=== PATIENT | male | born 1985 | race Caucasian/White ===

== ENCOUNTER 2017-07-28 21:07 | Emergency (ER) | payer SELFPAY ==
[2017-07-28 21:08] VITALS: BP 122/66; PULSE 79; RESP 16; TEMP 36.6; O2SAT 98; BMI 31.4
--- NOTE | 2017-07-28 21:40 | ED.DCSUM_ITS ---
- ER Visit Summary Date of Service: 07/28/17 Chief Complaint: Back pain History of Present Illness: The patient is a 31 M resents to the emergency department with left-sided lumbar pain. The patient states he was getting with his work truck yesterday. He states when he stepped down, he had some tightness in his low back. He states over the past 24 hours, the pain is worsened. Worse with movement. He has not taken anything for it. It does not radiate down his legs. He denies any problems of bowel or bladder. He denies any direct trauma. He has had similar pain before in the past. Physical Examination: Afebrile, vitals unremarkable. Well-appearing female no acute distress. Head is normocephalic, atraumatic. Pupil's equal round reactive, extraocular muscles intact. Neck supple. Heart regular rate and rhythm. Lungs clear, chest nontender. Abdomen soft, nontender, nondistended. No pulsatile mass. Patient has paraspinal tenderness in the lumbar area, but no bony tenderness. Straight leg raise is negative bilaterally. 2+ symmetric lower extremity pulses. 2+ reflexes. No clonus. No weakness of dorsiflexion, plantar flexion, or extensor hallucis longus bilaterally. Test Results: [] Emergency Department Course and Treatment: The patient has no midline tenderness. He has no red flag symptoms. His reflexes, pulses, and gait is normal. Patient was given analgesics and antispasmodics. He will be kept on his medications as an outpatient. He will be discharged home. Treatment Plan: [] Disposition: Discharge Impression: 1. acute lumbar strain This note was generated with [employer] dictation software. It may contain incorrect words, spelling, and punctuation that were not noted in review of the chart prior to signing ED Disposition - Plan for ED Patient: Chief Complaint: Back Instructions: ED Sprain Strain Lumbar Prescriptions: Ibuprofen [Motrin] 800 mg PO TID PRN PRN #20 tab PRN Reason: Pain Cyclobenzaprine [Flexeril] 10 mg PO TID PRN #20 tab PRN Reason: Muscle Spasm Referrals: Care Physician,No Primary [Primary Care Provider] -
[2017-07-28 21:42] VITALS: BP 126/75; PULSE 83; RESP 18; O2SAT 98
[2017-07-28] MEDS: HYDROcodone Bitartrate/Apap 5/325 Tablet PO (21:44)
[2017-07-28] MEDS: Orphenadrine 60 MG/2 ML Ampul IM (21:45)
== END 2017-07-28 22:00 | disposition home or self-care (01) ==
LOC: ED 21:25
PROVIDERS: Emergency Provider Emergency Medicine
DX: S39.012A Strain of muscle, fascia and tendon of lower back, initial encounter (principal); X58.XXXA Exposure to other specified factors, initial encounter; Y93.89 Activity, other specified; Y92.9 Unspecified place or not applicable
CPT/HCPCS: 96372; 99283

== ENCOUNTER 2019-06-13 22:04 | Emergency (ER) | payer SELFPAY ==
[2019-06-13 22:04] VITALS: BP 138/43; PULSE 91; RESP 15; TEMP 36.6; O2SAT 96; BMI 34.8
--- NOTE | 2019-06-13 22:29 | ED.VIS.DENTA ---
History of Present Illness Chief Complaint: Dental Informant: Patient Onset: Today Context: Sudden Onset Timing: Continuous Narrative: Patient is a 33-year-old male with no significant past medical history presenting with sudden onset of left upper jaw pain. Patient states that he was eating cereal when he bit down felt a piece go into his tooth. He instantly had severe dental pain. He states now his pain in his entire left side. He states he has had problems with his teeth in the past but is never had time to find a dentist. States he felt well earlier. He is a tobacco user. He denies any difficulty swallowing. Denies any fever or chills. Denies any other complaints at this time. He did take ibuprofen about 2 hours prior to arrival. No relief of his symptoms. Past Medical History - Allergies and Home Meds Allergies/Adverse Reactions: Allergies oxaprozin Adverse Reaction (Verified 06/13/19 22:07) Swelling Primary Care Physician: Care Physician,No Primary [Primary Care Provider] - Past Medical History: None Surgical History: noncontributory Lives: With Family Smoking Status: Current every day smoker Review of Systems General: Denies: Chills, Fever, Sweats Eyes: Denies: Visual changes - bilaterally, Diplopia ENT: Reports: - - Left-sided dental pain. Denies: Rhinorrhea, Sore throat Cardiovascular: Denies: Chest pain, Palpitations Respiratory: Denies: Dyspnea, Cough, Dyspnea on exertion Gastrointestinal: Denies: Abdominal pain, Nausea, Vomiting Musculoskeletal: Denies: Back pain, Extremity Pain Skin: Denies: Rash, Wounds Neurological: Denies: Headache, Weakness, Numbness Physical Exam Vital Signs/Narrative: Vital Signs Temp Pulse Resp BP Pulse Ox 06/13/19 22:04 97.9 F 91 15 138/43 H 96 Inital Vital Signs reviewed: Yes General: Well nourished, Well developed Head: Normocephalic, Atraumatic ENT: Moist mucous membranes, No rhinorrhea, TM's clear Mouth/Throat: Normal inspection lips/gums, Normal oral mucosa, No sublingual edema, Tenderness on tooth percussion - left upper first molar , Widespread dental decay. Negative for: Dental abscess, Trismus Neck: Supple, No lymphadenopathy, Nontender, No JVD Cardiovascular: Regular rate, Regular rhythm Respiratory: No distress Extremities: Nontender, No edema Skin: Normal color, No rash Neurological: Alert, Oriented x3, Cranial nerves II-XII grossly intact, Normal Strength, Normal Sensation Psychological: Normal affect Diagnostic/Tx/Re-eval - Medical Decision Making Regional and Local Dental Anesthesia: - - Posterior superior inferior alveolar block?left Evaluated for sudden onset of dental pain. Seems to be focused around the left upper molar. Dental block is performed. Patient is also given Tylenol as he took ibuprofen prior to arrival. In addition he is started on penicillin given first dose in the emergency room. [facility] heart shows the patient does not have any opioid prescriptions filled within the last 2 years. Patient be given a short course of [place] for breakthrough pain. He is given a dental referral sheet. He is also given a 10-day course of penicillin as well as a prescription of Motrin 600 mg. Patient does not have any signs of trismus, abscess or Ezequiel's angina. Patient is counseled on signs and symptoms requiring return to the emergency room. Patient verbalizes agreement and understand this plan. Patient discharged home in stable and improved condition. ED Disposition - Plan for ED Patient: Disposition: Home or Assisted Living Diagnosis: Dentalgia Instructions: ED Tooth Pain Prescriptions: Ibuprofen [Motrin] 600 mg PO Q6H PRN PRN #20 tab PRN Reason: Pain Score 1-10/10 Prescription Printed Hydrocodone/Acetaminophen [[place] 5-325 Tablet] 1 ea PO Q6H PRN PRN 3 Days #10 tab PRN Reason: Pain Score 6-10/10 Prescription Printed Penicillin V Potassium 500 mg PO 4X/DAY #40 tab Prescription Printed Referrals: Care Physician,No Primary [Primary Care Provider] - Additional Instructions: Avoid smoking. Return to the ER if you have fever, facial swelling or difficulty swallowing. Is very important that you follow-up with a dentist for definitive management of this.
[2019-06-13] MEDS: Penicillin Vk 250 MG Tablet 500 MG PO (22:50)
[2019-06-13] MEDS: Acetaminophen 500 MG Tablet 1000 MG PO (22:50)
== END 2019-06-13 23:56 | disposition home or self-care (01) ==
LOC: ED 23:40
PROVIDERS: Emergency Provider Emergency Medicine
DX: K08.89 Other specified disorders of teeth and supporting structures (principal); F17.200 Nicotine dependence, unspecified, uncomplicated
CPT/HCPCS: 99283